=== PATIENT | female | born 1960 | race African-American/Black ===

== ENCOUNTER 2021-04-06 14:07 | Inpatient (IN) | payer MEDICAID ==
[~2021-04-06] VITALS: Ht 154.9 cm; Wt 99.8 kg
[2021-04-06] MEDS ORDERED: SODIUM CHLORIDE 0.9% 1,000 ML IV ONE ×2 (14:45→18:15)
[2021-04-06 16:45] LABS: CLARITY URINE CLEAR (CLEAR); COLOR URINE YELLOW (YELLOW); KETONES URINE 1+ (NEGATIVE); LEUKOCYTE ESTERASE URINE NEGATIVE (NEGATIVE); NITRITE URINE NEGATIVE (NEGATIVE); OCCULT BLOOD URINE TRACE (NEGATIVE); PROTEIN URINE TRACE (NEGATIVE); SPECIFIC GRAVITY URINE 1.029 (1.005-1.030); UROBILINOGEN URINE 0.2 E.U./dL (0.2-1.0)
[2021-04-06 16:59] LABS: BASOPHILS % 0.7 % (0.0-2.0); HEMATOCRIT. 53.8 % (36.0-48.0); HEMOGLOBIN. 17.4 g/dL (12.0-16.0); LYMPHOCYTES % 24.3 % (20.0-50.0); MEAN CORPUSCULAR HEMOGLOBIN 29.9 pg (28.0-32.0); MEAN CORPUSCULAR VOLUME 92.6 fL (81.0-99.0); MEAN PLATELET VOLUME 12.2 fl (7.4-10.4); MONOCYTES % 5.7 % (2.0-8.0); NEUTROPHILS % 69.3 % (40.0-76.0); PLATELET 185 x1000/uL (130-400); RED BLOOD CELL COUNT 5.81 mill/uL (4.2-5.4)
[2021-04-06 17:05] LABS: *AMPHETAMINES SCREEN URINE NEGATIVE (NEGATIVE); *BARBITURATES SCREEN URINE NEGATIVE (NEGATIVE); *BENZODIAZEPINES SCREEN URINE NEGATIVE (NEGATIVE); *COCAINE SCREEN URINE NEGATIVE (NEGATIVE); OPIATES URINE SCREEN NEGATIVE (NEGATIVE)
[2021-04-06 17:06] LABS: CANNABINOID URINE SCREEN NEGATIVE (NEGATIVE); METHADONE URINE SCREEN NEGATIVE (NEGATIVE)
[2021-04-06 17:08] LABS: PHENCYCLIDINE URINE SCREEN NEGATIVE (NEGATIVE)
[2021-04-06 18:16] LABS: CHLORIDE 94 mEq/L (98-107)
[2021-04-06 18:23] LABS: ETHANOL BLOOD < 10 mg/dL
[2021-04-06 18:30] LABS: BETA HYDROXYBUTYRATE 8.5 mMol/L (0.0-0.3)
[2021-04-06] MEDS ORDERED: SODIUM CHLORIDE 0.9% 1,000 ML IV STA (18:34)
[2021-04-06] MEDS ORDERED: INSULIN REGULAR (DRIP) 100 UNITS in SODIUM CHLORIDE 0.9% 99 ML IV ONE (18:45)
[2021-04-06 19:06] LABS: PHOSPHORUS 7.4 mg/dL (2.5-4.9)
[2021-04-06] MEDS ORDERED: CEFTRIAXONE 1 G PREMIX 50 ML IV ONE (20:30)
[2021-04-06 20:43] LABS: BG BASE EXCESS -8.3 mmol/L (-2.0-2.0); BG CARBOXYHEMOGLOBIN 0.6 % (0.5-1.5); BG DEOXYHEMOGLOBIN 5.6 % (0.0-5.0); BG FRACTION INSPIRED OXYGEN 21; BG METHEMOGLOBIN 0.4 % (0.0-1.5); BG OXYGEN SATURATION 94.3 % (92.0-98.5); BG OXYHEMOGLOBIN 93.4 % (94.0-97.0); BG PCO2 35.1 mmHg (35.0-45.0); BG PH 7.303 (7.350-7.450); BG PO2 74.8 mmHg (75.0-100.0); BG SAMPLE SITE RIGHT RADIAL; BG TOTAL HEMOGLOBIN 17.7 g/dL (12.0-18.0); BG VENT MODE ROOM AIR
[2021-04-07] VITALS (13 sets, daily range): BP systolic 90–223; BP diastolic 56–117
[2021-04-07] MEDS: HYDRALAZINE 20MG/ML VIAL IV PRN ×3 (01:28→17:41)
[2021-04-07] MEDS ORDERED: INSULIN REGULAR (DRIP) 100 UNITS in SODIUM CHLORIDE 0.9% 100 ML IV NR (04:00)
[2021-04-07] MEDS ORDERED: DEXTROSE 50% WATER 50ML SYRINGE IV PRN ×3 (04:00→10:00)
[2021-04-07] MEDS: BLOOD SUGAR DIAGNOSTIC STRIP TEST SCH ×6 (04:35→21:17)
[2021-04-07] MEDS ORDERED: ONDANSETRON HCL 4MG/2ML INJ IV PRN (09:45)
[2021-04-07] MEDS ORDERED: ACETAMINOPHEN 325MG TABLET PO PRN ×2 (10:00)
[2021-04-07] MEDS: SODIUM CHLORIDE 0.45% 1,000 ML IV SCH ×2 (10:22→23:52)
[2021-04-07] MEDS: DILTIAZEM HCL 60MG TABLET PO SCH ×3 (12:00→17:41)
[2021-04-07 12:44] LABS: BASOPHILS % 0.2 % (0.0-2.0); HEMATOCRIT. 54.1 % (36.0-48.0); HEMOGLOBIN. 17.4 g/dL (12.0-16.0); LYMPHOCYTES % 10.4 % (20.0-50.0); MEAN CORPUSCULAR HEMOGLOBIN 28.7 pg (28.0-32.0); MEAN CORPUSCULAR VOLUME 89.6 fL (81.0-99.0); MEAN PLATELET VOLUME 12.1 fl (7.4-10.4); MONOCYTES % 7.4 % (2.0-8.0); PLATELET 250 x1000/uL (130-400); RED BLOOD CELL COUNT 6.04 mill/uL (4.2-5.4); RED CELL DISTRIBUTION WIDTH 13.9 % (11.6-14.6)
[2021-04-07] MEDS: INSULIN LISPRO 100 UNITS/ML SUBCUT SCH ×3 (13:06→21:00)
[2021-04-07 13:15] LABS: CHLORIDE 118 mEq/L (98-107)
[2021-04-07] MEDS: INSULIN GLARGINE UD 100 UNITS/ML SYR SUBCUT SCH ×2 (13:31→21:37)
[2021-04-07] MEDS ORDERED: CARI350T27 PO (14:01)
[2021-04-07] MEDS ORDERED: DOCU-150 PO (14:02)
[2021-04-07] MEDS ORDERED: CLON0.2T PO (14:03)
[2021-04-07] MEDS ORDERED: HYDR25TA MT (14:09)
[2021-04-07] MEDS ORDERED: [UNRECOGNIZED DRUG - CODE] MT (14:09)
[2021-04-07] MEDS ORDERED: ALBU18HF2 IH (14:09)
[2021-04-07] MEDS ORDERED: DICL100T83 MT (14:09)
[2021-04-07] MEDS ORDERED: LOSA50TA41 MT (14:09)
[2021-04-07] MEDS ORDERED: DILT180C87 MT (14:09)
[2021-04-07] MEDS ORDERED: INSULIN LISPRO 100 UNITS/ML SUBCUT NR ×2 (17:15→21:30)
[2021-04-07 21:09] LABS: CHLORIDE 109 mEq/L (98-107)
[2021-04-07] MEDS ORDERED: INSULIN GLARGINE UD 100 UNITS/ML SYR SUBCUT SCH ×2 (22:00)
[2021-04-08] VITALS: BP 134/59
[2021-04-08] MEDS: DILTIAZEM HCL 60MG TABLET PO SCH ×4 (00:04→18:17)
[2021-04-08] MEDS ORDERED: *PATIENT'S OWN MEDICATION STORAGE XX SCH (00:30)
[2021-04-08 04:00] VITALS: BP 148/77
[2021-04-08] MEDS: BLOOD SUGAR DIAGNOSTIC STRIP TEST SCH ×4 (06:09→21:31)
[2021-04-08] MEDS: INSULIN LISPRO 100 UNITS/ML SUBCUT SCH ×4 (06:12→22:05)
[2021-04-08 08:00] VITALS: BP 149/68
[2021-04-08] MEDS ORDERED: TRAMADOL 50MG TABLET PO PRN (09:15)
[2021-04-08] MEDS ORDERED: LACTULOSE 20G/30ML UDC PO SCH (09:15)
[2021-04-08] MEDS: HYDROCODONE/ACETAMINOPHEN 5/325MG TABLET PO PRN ×2 (09:53→16:29)
[2021-04-08] MEDS: INSULIN GLARGINE UD 100 UNITS/ML SYR SUBCUT SCH ×2 (10:07→22:31)
[2021-04-08 12:00] VITALS: BP 165/94
[2021-04-08] MEDS ORDERED: INSULIN LISPRO 100 UNITS/ML SUBCUT SCH (12:30)
[2021-04-08] MEDS: SODIUM CHLORIDE 0.45% 1,000 ML IV SCH (12:47)
[2021-04-08 16:00] VITALS: BP 129/60
[2021-04-08 20:00] VITALS: BP 112/61
[2021-04-08 21:30] LABS: BASOPHILS % 0.4 % (0.0-2.0); EOSINOPHILS % 0.4 % (0.0-5.0); HEMATOCRIT. 44.1 % (36.0-48.0); HEMOGLOBIN. 14.6 g/dL (12.0-16.0); LYMPHOCYTES % 41.2 % (20.0-50.0); MEAN CORPUSCULAR HEMOGLOBIN 29.4 pg (28.0-32.0); MEAN CORPUSCULAR VOLUME 88.6 fL (81.0-99.0); MEAN PLATELET VOLUME 11.9 fl (7.4-10.4); MONOCYTES % 5.5 % (2.0-8.0); NEUTROPHILS % 52.5 % (40.0-76.0); PLATELET 203 x1000/uL (130-400); RED BLOOD CELL COUNT 4.98 mill/uL (4.2-5.4); RED CELL DISTRIBUTION WIDTH 13.7 % (11.6-14.6)
[2021-04-08] MEDS: CLOTRIMAZOLE 1% VAGINAL CREAM 45GM VG SCH (22:07)
[2021-04-08] MEDS: HYDROCODONE/ACETAMINOPHEN 10/325MG TABLET PO PRN (22:33)
[2021-04-09] VITALS: BP 129/68
[2021-04-09] MEDS: DILTIAZEM HCL 60MG TABLET PO SCH ×4 (01:19→18:49)
[2021-04-09] MEDS: SODIUM CHLORIDE 0.45% 1,000 ML IV SCH ×2 (02:34→16:36)
[2021-04-09 03:15] LABS: CLARITY URINE CLOUDY (CLEAR); COLOR URINE YELLOW (YELLOW); KETONES URINE NEGATIVE (NEGATIVE); LEUKOCYTE ESTERASE URINE 2+ (NEGATIVE); NITRITE URINE NEGATIVE (NEGATIVE); OCCULT BLOOD URINE TRACE (NEGATIVE); PH URINE 5.5 (4.5-8.0); PROTEIN URINE NEGATIVE (NEGATIVE); SPECIFIC GRAVITY URINE 1.018 (1.005-1.030); UROBILINOGEN URINE 0.2 E.U./dL (0.2-1.0)
[2021-04-09 04:00] VITALS: BP 127/58
[2021-04-09] MEDS: BLOOD SUGAR DIAGNOSTIC STRIP TEST SCH ×4 (05:52→21:37)
[2021-04-09] MEDS: INSULIN LISPRO 100 UNITS/ML SUBCUT SCH ×4 (05:56→22:54)
[2021-04-09 08:00] VITALS: BP 155/91
[2021-04-09] MEDS: INSULIN GLARGINE UD 100 UNITS/ML SYR SUBCUT SCH ×2 (09:52→22:55)
[2021-04-09 12:00] VITALS: BP 137/71
[2021-04-09 16:00] VITALS: BP 137/84
[2021-04-09 20:00] VITALS: BP 130/85
[2021-04-09] MEDS: HYDROCODONE/ACETAMINOPHEN 10/325MG TABLET PO PRN (21:22)
[2021-04-09] MEDS: CLOTRIMAZOLE 1% VAGINAL CREAM 45GM VG SCH (21:27)
[2021-04-10] VITALS: BP_SYST 126; BP_SYST 130; BP_DIAS 83; BP_DIAS 85
[2021-04-10] MEDS: DILTIAZEM HCL 60MG TABLET PO SCH ×4 (00:39→17:13)
[2021-04-10 04:00] VITALS: BP 150/82
[2021-04-10] MEDS: SODIUM CHLORIDE 0.45% 1,000 ML IV SCH ×2 (04:40→17:22)
[2021-04-10] MEDS: BLOOD SUGAR DIAGNOSTIC STRIP TEST SCH ×4 (06:20→21:16)
[2021-04-10] MEDS: INSULIN LISPRO 100 UNITS/ML SUBCUT SCH ×4 (06:25→17:13)
[2021-04-10] MEDS ORDERED: INSULIN LISPRO 100 UNITS/ML SUBCUT SCH (07:30)
[2021-04-10 08:00] VITALS: BP 115/96
[2021-04-10] MEDS: HYDROCODONE/ACETAMINOPHEN 10/325MG TABLET PO PRN (08:23)
[2021-04-10] MEDS: INSULIN LISPRO (LOW DOSE) 100 UNITS/ML SUBCUT SCH ×3 (08:24→17:13)
[2021-04-10 10:46] LABS: BASOPHILS % 0.3 % (0.0-2.0); EOSINOPHILS % 1.4 % (0.0-5.0); HEMATOCRIT. 40.5 % (36.0-48.0); HEMOGLOBIN. 13.5 g/dL (12.0-16.0); LYMPHOCYTES % 56.9 % (20.0-50.0); MEAN CORPUSCULAR HEMOGLOBIN 29.5 pg (28.0-32.0); MEAN CORPUSCULAR VOLUME 88.5 fL (81.0-99.0); MEAN PLATELET VOLUME 11.9 fl (7.4-10.4); MONOCYTES % 7.2 % (2.0-8.0); NEUTROPHILS % 34.2 % (40.0-76.0); PLATELET 156 x1000/uL (130-400); RED BLOOD CELL COUNT 4.58 mill/uL (4.2-5.4); RED CELL DISTRIBUTION WIDTH 13.7 % (11.6-14.6)
[2021-04-10 10:50] LABS: CHLORIDE 106 mEq/L (98-107)
[2021-04-10] MEDS: INSULIN GLARGINE UD 100 UNITS/ML SYR SUBCUT SCH ×2 (10:50→21:30)
[2021-04-10 12:00] VITALS: BP 142/90
[2021-04-10] MEDS: IPRATROPIUM/ALBUTEROL 0.5-3(2.5)MG/3ML NEB HHN SCH ×2 (15:28→21:16)
[2021-04-10 16:00] VITALS: BP 96/69
[2021-04-10 20:00] VITALS: BP 148/82
[2021-04-10] MEDS: CLOTRIMAZOLE 1% VAGINAL CREAM 45GM VG SCH (21:30)
[2021-04-11] VITALS: BP 137/76
[2021-04-11] MEDS: DILTIAZEM HCL 60MG TABLET PO SCH ×2 (00:36→06:03)
[2021-04-11] MEDS: HYDROCODONE/ACETAMINOPHEN 10/325MG TABLET PO PRN (01:11)
[2021-04-11] MEDS: IPRATROPIUM/ALBUTEROL 0.5-3(2.5)MG/3ML NEB HHN SCH (02:35)
[2021-04-11 04:00] VITALS: BP 164/85
[2021-04-11] MEDS: INSULIN LISPRO (LOW DOSE) 100 UNITS/ML SUBCUT SCH (05:47)
[2021-04-11] MEDS: BLOOD SUGAR DIAGNOSTIC STRIP TEST SCH (05:47)
[2021-04-11] MEDS: SODIUM CHLORIDE 0.45% 1,000 ML IV SCH (06:31)
[2021-04-11] MEDS: INSULIN LISPRO 100 UNITS/ML SUBCUT SCH (06:32)
[2021-04-11 07:58] LABS: BASOPHILS % 0.5 % (0.0-2.0); EOSINOPHILS % 1.9 % (0.0-5.0); HEMATOCRIT. 36.9 % (36.0-48.0); HEMOGLOBIN. 12.2 g/dL (12.0-16.0); LYMPHOCYTES % 60.6 % (20.0-50.0); MEAN CORPUSCULAR HEMOGLOBIN 29.7 pg (28.0-32.0); MEAN CORPUSCULAR VOLUME 89.7 fL (81.0-99.0); MEAN PLATELET VOLUME 11.5 fl (7.4-10.4); MONOCYTES % 7.7 % (2.0-8.0); NEUTROPHILS % 29.3 % (40.0-76.0); PLATELET 164 x1000/uL (130-400); RED BLOOD CELL COUNT 4.12 mill/uL (4.2-5.4); RED CELL DISTRIBUTION WIDTH 13.7 % (11.6-14.6)
[2021-04-11 08:00] VITALS: BP 117/78
[2021-04-11 08:17] LABS: CHLORIDE 112 mEq/L (98-107)
[2021-04-11 08:31] LABS: HDL CHOLESTEROL 43 mg/dL (40-59)
[2021-04-11 08:32] LABS: LDL CHOLESTEROL 63 mg/dL (5-100)
[2021-04-11 08:34] LABS: T4 FREE 1.17 ng/dL (0.76-1.46)
[2021-04-11] MEDS ORDERED: INSLIS SUBCUT (08:40)
[2021-04-11] MEDS ORDERED: LANTUSUD SUBCUT (08:40)
[2021-04-11] MEDS ORDERED: CLOT45CR7 VG (08:40)
[2021-04-11 09:06] VITALS: BP 117/78
[2021-04-11] MEDS: INSULIN GLARGINE UD 100 UNITS/ML SYR SUBCUT SCH (11:01)
== END 2021-04-11 11:25 | disposition home or self-care (01) | DRG 420 ==
LOC: ER 14:07 → ENRESERV 04-07 07:15 → CVICU 04-07 09:23 → 7EST 04-07 12:45
PROVIDERS: ADMIT Internal Medicine; ATTEND Internal Medicine
DX: E11.10 Type 2 diabetes mellitus with ketoacidosis without coma (principal); R65.11 Systemic inflammatory response syndrome (SIRS) of non-infectious origin with acute organ dysfunction; N17.0 Acute kidney failure with tubular necrosis; K85.90 Acute pancreatitis without necrosis or infection, unspecified; E87.8 Other disorders of electrolyte and fluid balance, not elsewhere classified; E66.01 Morbid (severe) obesity due to excess calories; E83.52 Hypercalcemia; E86.0 Dehydration; E88.09 Other disorders of plasma-protein metabolism, not elsewhere classified; J45.909 Unspecified asthma, uncomplicated; K02.9 Dental caries, unspecified; E87.5 Hyperkalemia; E87.1 Hypo-osmolality and hyponatremia; I10 Essential (primary) hypertension; N13.2 Hydronephrosis with renal and ureteral calculous obstruction; Z91.19 Patient's noncompliance with other medical treatment and regimen; Z87.891 Personal history of nicotine dependence; Z71.3 Dietary counseling and surveillance; Z68.41 Body mass index [BMI] 40.0-44.9, adult
CPT/HCPCS: 36415; 36600; 71046; 74176; 80048; 80053; 80061; 80305; 80307; 80320; 80329; 81003; 82010; 82140; 82375; 82805; 82962; 83036; 83735; 83970; 84100; 84439; 84443; 84484; 84550; 84681; 85025; 93005; 94640; 99291; J0360; J0696; J1815; J2405; J7030; J7050; G0480

== ENCOUNTER 2024-08-14 08:43 | Emergency (ER) | payer MEDICAID ==
[~2024-08-14] VITALS: Ht 157.5 cm; Wt 100.0 kg
[~2024-08-14 08:43] MED LIST: ALBU18HF2 IH; CARI350T27 PO; CLON0.2T PO; CLOT45CR62 VG; DICL100T83 MT; DILT180C87 MT; DOCU-422 PO; HYDR25TA MT; INSLIS SUBCUT; LANTUSUD SUBCUT; LOSA50TA41 MT; [UNRECOGNIZED DRUG - CODE] MT
[2024-08-14 08:45] VITALS: O2SAT 94
[2024-08-14] MEDS: DEXAMETHASONE 4MG/ML 1ML VIAL IV ONE (10:09)
[2024-08-14 10:15] VITALS: TEMP 36.78072
[2024-08-14 10:36] LABS: BASOPHILS % 0.5 % (0.0-2.0); EOSINOPHILS % 1.5 % (0.0-5.0); HEMATOCRIT. 38.7 % (36.0-48.0); HEMOGLOBIN. 12.6 g/dL (12.0-16.0); LYMPHOCYTES % 33.7 % (20.0-50.0); MEAN CORPUSCULAR HGB CONC 32.4 g/dL (31.0-37.0); MEAN CORPUSCULAR VOLUME 89.5 fL (81.0-99.0); MEAN PLATELET VOLUME 8.7 fl (7.4-10.4); MONOCYTES % 6.5 % (2.0-8.0); NEUTROPHILS % 57.8 % (40.0-76.0); PLATELET 308 x1000/uL (130-400); RED BLOOD CELL COUNT 4.33 mill/uL (4.2-5.4); RED CELL DISTRIBUTION WIDTH 15.1 % (11.6-14.6); WHITE BLOOD COUNT 7.5 x1000/uL (4.5-11.0)
[2024-08-14 10:41] LABS: CHLORIDE 109 mEq/L (98-107); POTASSIUM 3.6 mEq/L (3.5-5.1); SODIUM 141 mEq/L (136-145)
[2024-08-14 10:42] LABS: CALCIUM 9.7 mg/dL (8.7-10.4); CARBON DIOXIDE 28 mEq/L (21-32)
[2024-08-14 10:47] LABS: CREATININE 0.8 mg/dL (0.6-1.0); GLUCOSE 100 mg/dL (70-105); UREA NITROGEN BLOOD 18 mg/dL (9-23)
[2024-08-14 10:48] LABS: TROPONIN I HIGH SENSITIVITY 18 ng/L (3.0-34)
[2024-08-14] MEDS ORDERED: EPIN0.3P3 IM (13:56)
[2024-08-14 14:35] VITALS: BP 171/91; PULSE 86; RESP 13; O2SAT 99
== END 2024-08-14 14:53 | disposition home or self-care (01) ==
LOC: ER 09:07 → EDBEDREQ 09:44 → ER 14:53
DX: R07.89 Other chest pain (principal); F17.200 Nicotine dependence, unspecified, uncomplicated; E11.9 Type 2 diabetes mellitus without complications; I10 Essential (primary) hypertension; Z79.899 Other long term (current) drug therapy
CPT/HCPCS: 80048; 83880; 85025; 85379; 84484; 36415; 71045; 93005; 96374; 99285; J1100; Z7610